=== PATIENT | male | born 2000 | race Two or more races ===

== ENCOUNTER 2025-02-26 15:31 | Emergency (ER) | payer BC, OTHER ==
[~2025-02-26] VITALS: Ht 180.3 cm; Wt 141.1 kg
--- NOTE | 2025-02-26 16:25 | DVH ---
X-ray right shoulder Technique: AP internal and external rotation views and transscapular view REASON FOR EXAM: PAIN S/P DISLOCATION 2 DAYS AGO INDICATION: PAIN S/P DISLOCATION 2 DAYS AGO FINDINGS: No fractures or dislocations. No erosions or periosteal reaction. Articular surfaces are sm ooth. IMPRESSION: 1. No acute bony pathology
[2025-02-26] MEDS ORDERED: CYCL-839 PO (18:32)
[2025-02-26] MEDS ORDERED: METH4PAK PO (18:32)
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
[2025-02-26 18:39] VITALS: BP 142/89; PULSE 85; RESP 16; TEMP 98; O2SAT 97
== END 2025-02-26 19:03 | disposition home or self-care (01) ==
LOC: ER 15:31
DX: S46.911A Strain of unspecified muscle, fascia and tendon at shoulder and upper arm level, right arm, initial encounter (principal); R03.0 Elevated blood-pressure reading, without diagnosis of hypertension; W22.09XA Striking against other stationary object, initial encounter; Y93.89 Activity, other specified; Y92.89 Other specified places as the place of occurrence of the external cause; Y99.8 Other external cause status
CPT/HCPCS: 73030